=== PATIENT | female | born 1970 | race Caucasian/White ===

== ENCOUNTER 2019-11-16 09:23 | Emergency (ER) | payer OTHER ==
[~2019-11-16] VITALS: Ht 152.4 cm; Wt 72.6 kg
[2019-11-16 09:28] VITALS: Ht 152.4 cm; Wt 72.6 kg
[2019-11-16 11:57] VITALS: BP 138/70
== END 2019-11-16 11:42 | disposition home or self-care (01) ==
LOC: ED 09:23
DX: M54.32 Sciatica, left side (principal); Z88.0 Allergy status to penicillin
CPT/HCPCS: J1885